=== PATIENT | female | born 1970 | race Caucasian/White ===

== ENCOUNTER 2023-08-19 15:04 | Outpatient (CLI) | payer OTHER | END 2023-08-19 15:05 | disposition home or self-care (01) | LOC: CSHRAD 15:04 | PROVIDERS: ATTEND Internal Medicine | DX: R00.0 Tachycardia, unspecified (principal) | CPT/HCPCS: 93306 ==

== ENCOUNTER 2023-08-27 14:39 | Outpatient (CLI) | payer OTHER ==
[~2023-08-27 14:39] MED LIST: Magnevist 469MG/ML 20 ML VIAL ONE
== END 2023-08-27 14:40 | disposition home or self-care (01) ==
LOC: CSHMRI 14:39
PROVIDERS: ATTEND Internal Medicine
DX: C19 Malignant neoplasm of rectosigmoid junction (principal); R93.5 Abnormal findings on diagnostic imaging of other abdominal regions, including retroperitoneum; R59.0 Localized enlarged lymph nodes
CPT/HCPCS: 72197